=== PATIENT | female | born 1940 | race Hispanic/Latino ===

== ENCOUNTER 2022-02-23 09:12 | Emergency (ER) | payer MEDICARE, MEDICAID ==
[~2022-02-23] VITALS: Ht 154.9 cm; Wt 57.2 kg
[2022-02-23] MEDS ORDERED: ACETAMINOPHEN 325 MG TAB PO ONE (09:45)
[2022-02-23] MEDS ORDERED: TRAMADOL HCL 50 MG TAB PO ONE (09:45)
== END 2022-02-23 11:18 | disposition home or self-care (01) ==
LOC: ER 09:23
DX: R50.9 Fever, unspecified (principal); R07.89 Other chest pain; M79.18 Myalgia, other site; I10 Essential (primary) hypertension; E78.5 Hyperlipidemia, unspecified; G20 Parkinson's disease; M81.0 Age-related osteoporosis without current pathological fracture; K21.9 Gastro-esophageal reflux disease without esophagitis; M21.372 Foot drop, left foot
CPT/HCPCS: 71101; 99283

== ENCOUNTER 2024-07-20 15:22 | Inpatient (IN) | payer MEDICARE ==
[~2024-07-20] VITALS: Ht 154.9 cm; Wt 57.2 kg
[~2024-07-20 15:22] MED LIST: ATORVASTATIN CA10 MG PO; CARBIDOPA-LEVO1 EAC1 PO; DOXYCYCLINE HY100 MG PO; FAMOTIDINE20 MG PO; FUROSEMIDE40 MG PO; K-DUR10 MEQ PO; LOSARTAN POTASS25 MG PO; METOPROLOL SUCC25 MG PO; TOPROL XL25 MG PO; ULTRAM 50MG50 MG PO; XARELTO2.5 MG PO
[2024-07-20 15:33] VITALS: TEMP 97.8
[2024-07-20] MEDS ORDERED: ONDANSETRON HCL INJ 2MG/ML 2ML 2 MG/ML VIAL IV PRN (17:45)
[2024-07-20] MEDS ORDERED: SODIUM CHLORIDE FLUSH 10 ML SYR INJ PRN (18:15)
[2024-07-20 18:18] VITALS: PULSE 62; RESP 18; O2SAT 99
[2024-07-20] MEDS ORDERED: HYDRALAZINE HCL 20 MG/ML VIAL IV PRN (18:45)
[2024-07-20] MEDS ORDERED: ACETAMINOPHEN 325 MG TAB PO PRN (18:45)
[2024-07-20] MEDS ORDERED: POLYETHYLENE GLYCOL 3350 17 GM PACK PO PRN (18:45)
[2024-07-20 19:55] LABS: BASOPHILS % 0.4 % (0.0-1.0); EOSINOPHILS # (AUTO) 0.2 (0.0-0.4); EOSINOPHILS % 2.7 % (0.0-6.0); HEMATOCRIT 35.7 % (34.2-44.1); HEMOGLOBIN 11.4 g/dL (12.0-16.0); LYMPHOCYTES # (AUTO) 0.8 (1.0-3.2); MEAN CORPUSCULAR HEMOGLOBIN 30.6 pg (28-32); MEAN CORPUSCULAR HGB CONC 31.9 g/dL (31-35); MEAN CORPUSCULAR VOLUME 95.7 fL (81-99); MONOCYTES # (AUTO) 0.5 (0.2-0.8); MONOCYTES % 9.9 % (4.4-11.3); NEUTROPHILS # (AUTO) 3.9 (2.1-6.9); NEUTROPHILS % 71.8 % (38.7-80.0); PLATELET COUNT 266 x10e3/uL (140-360); RED BLOOD COUNT 3.73 x10e6/uL (3.6-5.1); RED CELL DISTRIBUTION WIDTH 13.8 % (11.7-14.4); WHITE BLOOD COUNT 5.46 x10e3/uL (4.8-10.8)
[2024-07-20] MEDS ORDERED: IBUPROFEN 400 MG TAB ONE (19:56)
[2024-07-20] MEDS: ONDANSETRON HCL INJ 2MG/ML 2ML 2 MG/ML VIAL IV PRN (19:58)
[2024-07-20] MEDS: IBUPROFEN 400 MG TAB PO ONE (19:58)
[2024-07-20] MEDS: Morphine 4mg INJECTION 4 MG/ML INJ IV PRN (19:59)
[2024-07-20 20:20] LABS: ALBUMIN 3.7 g/dL (3.5-5.0); ALBUMIN/GLOBULIN RATIO 1.3 (0.8-2.0); ANION GAP 15.1 mmol/L (8-16); BILIRUBIN,TOTAL 0.3 mg/dL (0.2-1.2); CREATININE, SERUM 0.68 mg/dL (0.57-1.11); POTASSIUM 4.1 mmol/L (3.5-5.1); TOTAL PROTEIN 6.5 g/dL (6.5-8.1)
[2024-07-20 20:45] VITALS: PULSE 66; RESP 16
[2024-07-20 20:52] VITALS: PULSE 75; RESP 18; O2SAT 97
[2024-07-20 21:14] VITALS: BP 192/75; PULSE 72; RESP 17; TEMP 98.6; O2SAT 100
[2024-07-20 21:30] VITALS: BP 192/75; PULSE 72; RESP 17; TEMP 98.6; O2SAT 100
[2024-07-20] MEDS ORDERED: VITAMIN B-121000 MCG PO (21:51)
[2024-07-20] MEDS ORDERED: ASPIRIN81 MG PO (21:51)
[2024-07-20] MEDS ORDERED: ARTIFICIAL TEAR15 ML OU (21:51)
[2024-07-20] MEDS ORDERED: CALCIUM CARBON500 MG PO (21:51)
[2024-07-20] MEDS ORDERED: ACETAMINOPHEN325 M1 PO (21:51)
[2024-07-20] MEDS ORDERED: CARBIDOPA-LEVO1 EAC2 PO (21:51)
[2024-07-20] MEDS ORDERED: FERROUS SULFAT325 MG PO (21:51)
[2024-07-20] MEDS ORDERED: MELATONIN3 MG PO (21:51)
[2024-07-20] MEDS ORDERED: EXELON1 EAC2 TD (21:51)
[2024-07-20] MEDS ORDERED: POLYETHYLENE GL17 GM PO (21:51)
[2024-07-20] MEDS ORDERED: BIOTIN1 MG PO (21:51)
[2024-07-20] MEDS ORDERED: POTASSIUM CHLO20 ME1 PO (21:51)
[2024-07-20] MEDS ORDERED: LASIX40 MG PO (21:51)
[2024-07-20] MEDS ORDERED: DICLOFENAC SOD100 GM TOP (21:51)
[2024-07-20] MEDS ORDERED: VITAMIN D325 MCG PO (21:51)
[2024-07-20] MEDS ORDERED: NUPLAZID34 MG PO (21:51)
[2024-07-20] MEDS ORDERED: TRAZODONE HCL100 MG PO (21:51)
[2024-07-20] MEDS ORDERED: GUAIFENESIN 600 MG TAB PO PRN (22:30)
[2024-07-20] MEDS ORDERED: ACETAMINOPHEN/CODEINE 300MG - 30MG TAB PO PRN (22:30)
[2024-07-20] MEDS ORDERED: MAGNESIUM/ALUMINUM/SIMETHICONE 30 ML UDC PO PRN (22:30)
[2024-07-20] MEDS ORDERED: CALCIUM CARBONATE 500 MG CHEWABLE TABS PO PRN (22:30)
[2024-07-20] MEDS ORDERED: GUAIFENESIN 200 MG/10 ML UDC PO PRN (22:30)
[2024-07-20] MEDS ORDERED: LOPERAMIDE HCL 2 MG CAP PO PRN (22:30)
[2024-07-20] MEDS ORDERED: BISACODYL 5 MG TAB EC PO PRN (22:30)
[2024-07-20] MEDS ORDERED: ONDANSETRON HCL 4 MG ORAL DISINTEGRATING TAB PO PRN (22:30)
[2024-07-20] MEDS ORDERED: CEPACOL SORE THROAT LOZENGES PO PRN (22:30)
[2024-07-20] MEDS ORDERED: BISACODYL 10 MG SUPP PR PRN (22:30)
[2024-07-20] MEDS: TRAMADOL HCL 50 MG TAB PO PRN (22:41)
[2024-07-21] VITALS (10 sets, daily range): BP systolic 111–169; BP diastolic 44–68; PULSE 59–84; RESP 18–20; TEMP 97.8–98.4; O2SAT 95–100
[2024-07-21] MEDS: DIPHENHYDRAMINE HCL 25 MG CAP PO PRN (05:56)
[2024-07-21 06:30] LABS: BASOPHILS % 0.6 % (0.0-1.0); EOSINOPHILS # (AUTO) 0.1 (0.0-0.4); EOSINOPHILS % 2.6 % (0.0-6.0); HEMATOCRIT 36.8 % (34.2-44.1); HEMOGLOBIN 11.6 g/dL (12.0-16.0); LYMPHOCYTES # (AUTO) 0.6 (1.0-3.2); LYMPHOCYTES % 12.9 % (18.0-39.1); MEAN CORPUSCULAR HEMOGLOBIN 30.9 pg (28-32); MEAN CORPUSCULAR HGB CONC 31.5 g/dL (31-35); MEAN CORPUSCULAR VOLUME 97.9 fL (81-99); MONOCYTES # (AUTO) 0.4 (0.2-0.8); MONOCYTES % 9.1 % (4.4-11.3); NEUTROPHILS # (AUTO) 3.5 (2.1-6.9); NEUTROPHILS % 74.4 % (38.7-80.0); PLATELET COUNT 243 x10e3/uL (140-360); RED BLOOD COUNT 3.76 x10e6/uL (3.6-5.1); RED CELL DISTRIBUTION WIDTH 13.9 % (11.7-14.4); WHITE BLOOD COUNT 4.64 x10e3/uL (4.8-10.8)
[2024-07-21 06:59] LABS: ALBUMIN 3.3 g/dL (3.5-5.0); ALBUMIN/GLOBULIN RATIO 1.2 (0.8-2.0); ANION GAP 14.1 mmol/L (8-16); BILIRUBIN,TOTAL 0.5 mg/dL (0.2-1.2); CALCIUM 8.6 mg/dL (8.4-10.2); CREATININE, SERUM 0.63 mg/dL (0.57-1.11); POTASSIUM 4.1 mmol/L (3.5-5.1); TOTAL PROTEIN 6.1 g/dL (6.5-8.1)
[2024-07-21 07:12] LABS: CHOL/HDL RATIO 2.2 (3.0-3.6); MAGNESIUM 1.8 MG/DL (1.3-2.1); PHOSPHORUS 4.1 MG/DL (2.3-4.7)
[2024-07-21 07:35] LABS: FREE T4 (FREE THYROXINE) 1.11 ng/dL (0.8-1.8); THYROID STIMULATING HORMONE 1.898 uIU/mL (0.350-4.940)
[2024-07-21] MEDS: DOCUSATE SODIUM 100 MG CAP PO SCH (09:09)
[2024-07-21] MEDS: LIDOCAINE 4% PATCH TP SCH (09:09)
[2024-07-21] MEDS ORDERED: ACETAMINOPHEN 325 MG TAB PO PRN (09:45)
[2024-07-21] MEDS ORDERED: CARBIDOPA/LEVODOPA 25/250 TAB PO SCH (09:45)
[2024-07-21] MEDS ORDERED: TRAMADOL HCL 50 MG TAB PO PRN (09:45)
[2024-07-21] MEDS: NON-FORMULARY MEDICATION (Biotin 1 MG) PO SCH (11:00)
[2024-07-21] MEDS: CALCIUM CARBONATE/VITAMIN D3 500 MG TAB PO SCH (11:19)
[2024-07-21] MEDS: FERROUS SULFATE 325 MG TAB PO SCH (11:19)
[2024-07-21] MEDS: LOSARTAN POTASSIUM 25 MG TAB PO SCH (11:19)
[2024-07-21] MEDS: CHOLECALCIFEROL 1,000 UNIT TAB PO SCH (11:20)
[2024-07-21] MEDS: CYANOCOBALAMIN 1,000 MCG TAB PO SCH (11:20)
[2024-07-21] MEDS: ASCORBIC ACID 500 MG TAB PO SCH (11:20)
[2024-07-21] MEDS: POTASSIUM CHLORIDE 20 MEQ TAB CR PO SCH (11:20)
[2024-07-21] MEDS: FUROSEMIDE 40 MG TAB PO SCH (11:20)
[2024-07-21] MEDS: ASPIRIN 81 MG CHEW TAB PO SCH (11:20)
[2024-07-21] MEDS: ATORVASTATIN 10 MG TAB PO SCH (11:20)
[2024-07-21] MEDS: METOPROLOL SUCCINATE 25 MG TAB XL PO SCH (11:21)
[2024-07-21] MEDS: POLYETHYLENE GLYCOL 3350 17 GM PACK PO SCH (11:21)
[2024-07-21] MEDS: ARTIFICIAL TEARS (OPTH) 15 ML BTL OU SCH (12:59)
[2024-07-21] MEDS: DICLOFENAC SOD 1% GEL 100 GM TUBE TP SCH (13:31)
[2024-07-21] MEDS: CARBIDOPA/LEVODOPA 10/100 TAB PO SCH (14:00)
[2024-07-21] MEDS ORDERED: ALBUTEROL/IPRATROPIUM 3 ML NEB NEB PRN (19:45)
[2024-07-21] MEDS: MELATONIN 3 MG TAB PO SCH (21:51)
[2024-07-21] MEDS: TRAZODONE HCL 50 MG TAB PO SCH (21:52)
[2024-07-21] MEDS: METHYLPREDNISOLONE SOD SUCC 40 MG/ML VIAL 1ML IV ONE (21:53)
[2024-07-22 08:20] VITALS: BP 124/56; PULSE 77; RESP 18; TEMP 97.5; O2SAT 100
[2024-07-22 09:00] VITALS: BP 124/56; PULSE 77; RESP 18; TEMP 97.5; O2SAT 100
[2024-07-22] MEDS: RIVASTIGMINE TRANSDERMAL 9.5MG/24HOURS PATCH TD SCH (09:23)
[2024-07-22] MEDS: ZINC OXIDE 30 GM TUBE TOP PRN (09:24)
[2024-07-22 12:49] VITALS: BP 100/57; PULSE 60; RESP 18; TEMP 98.4; O2SAT 99
[2024-07-22] MEDS: CARBIDOPA/LEVODOPA 25/250 TAB PO SCH (14:31)
[2024-07-22] MEDS: HYDROCODONE/APAP 5MG-325MG TAB PO PRN (15:58)
[2024-07-22 16:59] VITALS: BP 111/61; PULSE 59; RESP 18; TEMP 98.1; O2SAT 100
[2024-07-22 20:00] VITALS: BP 134/47; PULSE 66; RESP 17; TEMP 97.4; O2SAT 98
[2024-07-23] VITALS (8 sets, daily range): BP systolic 104–137; BP diastolic 44–64; PULSE 52–82; RESP 17–18; TEMP 96.4–98.1; O2SAT 95–100
[2024-07-23] MEDS: CAPSAICIN 0.025% CREAM TP PRN (21:27)
[2024-07-24] VITALS (7 sets, daily range): BP systolic 98–130; BP diastolic 54–68; PULSE 55–78; RESP 17–18; TEMP 97.8–98.1; O2SAT 96–100
[2024-07-24] MEDS: CARISOPRODOL 350 MG TAB PO PRN (01:31)
[2024-07-24 07:16] LABS: BASOPHILS % 0.5 % (0.0-1.0); EOSINOPHILS # (AUTO) 0.1 (0.0-0.4); EOSINOPHILS % 3.7 % (0.0-6.0); HEMATOCRIT 34.9 % (34.2-44.1); LYMPHOCYTES % 26.4 % (18.0-39.1); MEAN CORPUSCULAR HEMOGLOBIN 30.6 pg (28-32); MEAN CORPUSCULAR HGB CONC 31.5 g/dL (31-35); MEAN CORPUSCULAR VOLUME 97.2 fL (81-99); MONOCYTES # (AUTO) 0.3 (0.2-0.8); MONOCYTES % 7.2 % (4.4-11.3); NEUTROPHILS # (AUTO) 2.3 (2.1-6.9); NEUTROPHILS % 61.9 % (38.7-80.0); PLATELET COUNT 250 x10e3/uL (140-360); RED BLOOD COUNT 3.59 x10e6/uL (3.6-5.1); RED CELL DISTRIBUTION WIDTH 13.4 % (11.7-14.4); WHITE BLOOD COUNT 3.75 x10e3/uL (4.8-10.8)
[2024-07-24 07:42] LABS: ANION GAP 14.5 mmol/L (8-16); CALCIUM 8.4 mg/dL (8.4-10.2); CREATININE, SERUM 0.6 mg/dL (0.57-1.11); POTASSIUM 4.5 mmol/L (3.5-5.1)
[2024-07-24] MEDS: FAMOTIDINE 20 MG TAB ONE (10:51)
[2024-07-24] MEDS: FAMOTIDINE 20 MG TAB PO SCH (10:51)
[2024-07-24] MEDS ORDERED: ACETAMINOPHEN 325 MG TAB PO PRN (14:45)
[2024-07-24] MEDS ORDERED: MORPHINE SULFATE IR 15 MG TABLET PO PRN (15:00)
== END 2024-07-24 17:03 | disposition home or self-care (01) | DRG 184 ==
LOC: ER 15:40 → ERHOLD 18:16 → MED/SURG3 20:57 → OBSVTOIN 07-21 10:54
PROVIDERS: ADMIT Internal Medicine; ATTEND Internal Medicine
DX: S22.41XA Multiple fractures of ribs, right side, initial encounter for closed fracture (principal); S22.060A Wedge compression fracture of T7-T8 vertebra, initial encounter for closed fracture; Z66 Do not resuscitate; G20.C Parkinsonism, unspecified; G31.83 Neurocognitive disorder with Lewy bodies; I10 Essential (primary) hypertension; M54.9 Dorsalgia, unspecified; F02.80 Dementia in other diseases classified elsewhere, unspecified severity, without behavioral disturbance, psychotic disturbance, mood disturbance, and anxiety; E78.5 Hyperlipidemia, unspecified; J44.9 Chronic obstructive pulmonary disease, unspecified; F41.9 Anxiety disorder, unspecified; F32.A Depression, unspecified; K21.9 Gastro-esophageal reflux disease without esophagitis; M19.90 Unspecified osteoarthritis, unspecified site; M21.372 Foot drop, left foot; M81.0 Age-related osteoporosis without current pathological fracture; W18.30XA Fall on same level, unspecified, initial encounter; Z91.81 History of falling; Y92.129 Unspecified place in nursing home as the place of occurrence of the external cause; Z79.82 Long term (current) use of aspirin; Z95.2 Presence of prosthetic heart valve; Z90.710 Acquired absence of both cervix and uterus; Z91.048 Other nonmedicinal substance allergy status; Z88.5 Allergy status to narcotic agent; Z88.8 Allergy status to other drugs, medicaments and biological substances; Z99.3 Dependence on wheelchair; F17.210 Nicotine dependence, cigarettes, uncomplicated; Z82.49 Family history of ischemic heart disease and other diseases of the circulatory system
CPT/HCPCS: 36415; 70450; 71045; 71250; 80048; 80053; 80061; 83036; 83735; 84100; 84439; 84443; 85025; 94799; 99284; G0378; J0360; J0696; J2270; J2405; J2919